=== PATIENT | male | born 1995 | race Caucasian/White ===

== ENCOUNTER → 2023-09-21 07:41 | Outpatient (REF) | payer OTHER, SELFPAY | LOC: EMG 07:41 | PROVIDERS: ATTENDING PHYSICIAN Orthopaedic Surgery; FAMILY PHYSICIAN Physician Assistant Medical | DX: M54.6 Pain in thoracic spine (principal); R20.0 Anesthesia of skin | CPT/HCPCS: 95886; 95909 ==

== ENCOUNTER → 2024-01-08 13:55 | Outpatient (REF) | payer OTHER, SELFPAY | LOC: RCS 13:55 | PROVIDERS: ATTENDING PHYSICIAN Nurse Practitioner; FAMILY PHYSICIAN Physician Assistant Medical | DX: Q23.1 Congenital insufficiency of aortic valve (principal) | CPT/HCPCS: 93306 ==

== ENCOUNTER → 2024-05-22 08:54 | Outpatient (REF) | payer OTHER, SELFPAY | LOC: WDC 08:54 | PROVIDERS: ATTENDING PHYSICIAN Physician Assistant Medical | DX: N64.4 Mastodynia (principal) | CPT/HCPCS: 76642 ==

== ENCOUNTER → 2024-06-24 14:21 | Outpatient (REF) | payer OTHER, SELFPAY | LOC: HWRAD 14:21 | PROVIDERS: ATTENDING PHYSICIAN Physician Assistant Medical | DX: R74.8 Abnormal levels of other serum enzymes (principal) | CPT/HCPCS: 76700 ==

== ENCOUNTER 2024-08-14 22:56 | Emergency (ER) | payer OTHER, SELFPAY ==
[2024-08-14 23:01] VITALS: BP 124/74
[2024-08-14 23:06] VITALS: BMI 25.2
[2024-08-14 23:43] LABS: % Basophils 0.4 % (0-2); % Eosinophils 0.7 % (0-6); % Immature Granulocytes 0.2 % (0-0.5); % Lymphocytes 16.7 % (20.5-51.1); % Monocytes 3.8 % (1.7-9.3); % Neutrophils 78.2 % (42.2-75.2); Absolute Eosinophils 0.1 10^3/uL (0-0.7); Absolute Lymphocytes 1.8 10^3/uL (1.2-3.4); Absolute Monocytes 0.4 10^3/uL (0.1-0.6); Absolute Neutrophils 8.3 10^3/uL (1.4-6.5); Hemoglobin 15.9 g/dL (13.0-18.0); Mean Corp Hgb Conc. 35.3 g/dL (33.0-37.0); Mean Corpuscular Hgb 30.8 pg (27.0-31.0); Mean Platelet Volume 10.3 fL (7.4-10.4); Nucleated Red Blood Cells % 0 % (-); Platelet Count 237 10^3/uL (130-400); Red Blood Cell Count 5.17 10^6/uL (4.70-6.10); Red Cell Dist. Width 12.4 % (11.5-14.5); White Blood Cell Count 10.6 10^3/uL (4.8-10.8)
[2024-08-14 23:53] LABS: ALT (SGPT) 77 U/L (0-50); AST (SGOT) 41 U/L (17-59); Albumin 4.9 g/dl (3.5-5.0); Alkaline Phosphatase 83 U/L (38-126); Blood Urea Nitrogen 16 mg/dl (9-20); Calcium 9.8 mg/dl (8.4-10.2); Carbon Dioxide 26 mmol/L (22-30); Chloride 97 mmol/L (98-107); Estimated Creatinine Clearance > 125 ml/min; Glucose 139 mg/dl (70-99); Potassium 3.3 mmol/L (3.5-5.1); Sodium 135 mmol/L (135-145); Total Bilirubin 0.5 mg/dl (0.2-1.3); Total Protein 7.8 g/dl (6.3-8.2); eGFR > 60.00
[2024-08-15] MEDS: NSS 1000 IV (02:13)
[2024-08-15] MEDS: ATIVAN 1 MG IV (02:14)
[2024-08-15] MEDS: KCL 40 MEQ PO (02:14)
--- NOTE | 2024-08-15 02:14 | ED.GENMED ---
History of Present Illness
General
Chief Complaint: Abdominal Symptoms
Source: patient
Exam Limitations: none
Time Seen by Provider: 08/15/24 01:49
Nursing documentation reviewed up to this point in time: agreed with
History of Present Illness
History of Present Illness:
29-year-old male via EMS presents with diarrhea, near syncope recent liver biopsy at outside hospital has been very anxious about the results of that, felt diarrhea coming onset on the toilet nearly passed out called 911 no bloody diarrhea had some
chicken earlier today worried that he could have Salmonella,
Past History
Past History
ED Past Medical History: Psychiatric (Anxiety) and Other (bicuspid aortic valve, mild aortic stenosis)
ED Past Surgical History: Other (Liver biopsy)
Social History
Tobacco: Non-smoker
Alcohol: Occasional
Drug: None
Personal: Single
Living: with family
Employment: Employed
Review of Systems
Review of Systems
All Other Systems: Not applicable
Constitutional: Denies fever or fatigue
EENT: Reports no symptoms
Respiratory: Reports no symptoms
ABD/GI: Reports abdominal pain and diarrhea
: Reports no symptoms
Musculoskeletal: Reports other (Muscle cramp)
Skin: Reports no symptoms
Psychiatric: Reports anxiety
Phy Exam
Physical Exam
Physical Exam:
Physical Exam
General: 29-year-old male hyperventilating
Neck: Lips are moist no jaw
Heart: s1/s2 regular rate and rhythm, no murmur. equal radial pulses.
Lungs: no acute respiratory distress. clear bilaterally
Abdomen: Soft minimal epigastric tender
Neuro: alert and oriented. no focal neurological deficits
Skin: no rash
Psychiatric: Anxious cooperative hyperventilating with carpopedal spasm
Extremities: no edema.
Course
Orders/Labs/Results
Orders:
Orders
08/14/24 23:16
CBC/With Diff [Complete Blood Count/With Diff] Urgent
Comprehensive Metabolic Panel Urgent
08/15/24 00:06
C difficile Antigen & Toxins Urgent
CONG Source: Feces/Stool
Specimen Description:
Date Specimen was Collected: 08/15/24
Time Specimen was Collected: 00:05
Stool Culture Urgent
CONG Source: Feces/Stool
Specimen Description:
Date Specimen was Collected: 08/15/24
Time Specimen was Collected: 00:05
Stool For WBC Urgent
CONG Source: Feces/Stool
Specimen Description:
Date Specimen was Collected: 08/15/24
Time Specimen was Collected: 00:05
08/15/24 02:04
0.9% Sodium Chloride 1000 ml [Nss] 1,000 ml IV BOLUS
Lorazepam [Ativan] 1 mg IV NOW STA
Potassium Chloride [KCl] 40 meq PO NOW STA
08/15/24 02:17
Electrocardiogram (*1) Urgent
Reason for Study: Fatigue / Weakness
EKG- Treatment ONCE
Abnormal Lab Results
08/14/24
23:16
Absolute Neuts (auto) 8.3 H 10^3/uL
(1.4-6.5)
Neutrophils % 78.2 H %
(42.2-75.2)
Lymphocytes % 16.7 L %
(20.5-51.1)
Potassium 3.3 L mmol/L
(3.5-5.1)
Chloride 97 L mmol/L
(98-107)
Glucose 139 H mg/dl
(70-99)
ALT 77 H U/L
(0-50)
08/14/24 23:16
08/14/24 23:16
Vital Signs
Initial and Last Documented VS:
Initial Vital Signs
Temp Pulse Resp BP Pulse Ox
97.8 F 71 20 124/74 100
08/14/24 23:01 08/14/24 23:01 08/14/24 23:01 08/14/24 23:01 08/14/24 23:01
Last Documented Vital Signs
Temp Pulse Resp BP Pulse Ox
97.8 F 90 12 124/74 100
08/14/24 23:01 08/15/24 01:30 08/15/24 01:30 08/14/24 23:01 08/15/24 01:30
MDM/Problems Addressed
Differential Diagnosis Includes:
Diarrhea, stress anxiety carpopedal spasm dehydration electrolyte abnormality arrhythmia
MDM/Problems Addressed:
Diarrhea carpopedal spasm anxiety near syncope
Chronic conditions affecting care:
Autoimmune hepatitis
Chronic conditions affecting care: Psychiatric illness
Acute Exacerbation and/or Progression of Chronic Illness:
Autoimmune hepatitis
Acute Exacerbation and/or Progression of Chronic Illness: Psychiatric illness
*Critical Care Note
Total Time (30-74mins, 75-104mins- exclusive of procedures): Not Applicable
Update Note
Update Note:
2:40 AM update patient much improved after IV fluids and Ativan
ED Attending Note
-
Portions of this chart may have been created with voice recognition software.� Occasional wrong word or��sound alike� substitutions may have occurred due to the inherent limitations of voice recognition software.
Discharge Plan
Departure
Patient Disposition: Home (Routine Discharge)
Date of Disposition: 08/15/24
Time of Disposition: 02:30
Patient with high blood pressure during this ER visit?: No
Condition: Good
Covid-19: Not Applicable
Discharge Problem:
Diarrhea, Syncope, near
Instructions: Diarrhea in teens and adults, [place] Diet
Prescriptions:
New
loperamide [Imodium A-D] 2 mg capsule
2 mg PO Q6H PRN (Reason: loose stool) Qty: 20 0RF
No Action
fluoxetine 20 MG capsule
80 mg PO DAILY
amphetamine [Adzenys XR-ODT] 12.5 MG tablet,disinteg ER biphase 24h
25 mg PO DAILY
amphetamine sulfate [Evekeo ODT] 5 MG tablet,disintegrating
5 mg PO DAILY
Referrals:
Zahida Pederson PA-C [Family Provider] - Next open appointment
Interventions
Interventions:
*Risk Screen - Suicide Last Done: 08/14/24 23:06
*General Assessment Last Done: 08/14/24 23:06
*Neglect/Abuse Screening Last Done: 08/14/24 23:06
*ED- Fall Risk Assessment Last Done: 08/14/24 23:06
*ED COVID-19 Vaccine History Last Done: 08/14/24 23:06
GY-Cphxxn-Xlvtbqnedp Assessment Last Done: 08/14/24 23:06
Discharge Date and Time
Print Language: CZECH
[2024-08-15 02:55] VITALS: BP 119/80
== END 2024-08-15 03:05 | disposition home or self-care (01) ==
LOC: EMR 22:56
PROVIDERS: Student in an Organized Health Care Education/Training Program; EMERGENCY PHYSICIAN Emergency Medicine; FAMILY PHYSICIAN Physician Assistant Medical
DX: R19.7 Diarrhea, unspecified (principal); R55 Syncope and collapse; K75.4 Autoimmune hepatitis
CPT/HCPCS: 96374; 96361; 99284; 80053; 85025; 87045; 87046; 87324; 87427; 87449; 89055

== ENCOUNTER → 2024-10-16 13:02 | Outpatient (REF) | payer OTHER, SELFPAY | LOC: RAD 13:02 | PROVIDERS: ATTENDING PHYSICIAN Physician Assistant; FAMILY PHYSICIAN Physician Assistant Medical | DX: M25.551 Pain in right hip (principal); M25.552 Pain in left hip; M54.59 Other low back pain | CPT/HCPCS: 72200; 73523 ==